=== PATIENT | female | born 1985 | race Two or more races ===

== ENCOUNTER 2017-04-06 11:00 | Emergency (ER) | payer MEDICAID ==
[~2017-04-06] VITALS: Ht 165.1 cm; Wt 70.8 kg
[~2017-04-06 11:00] MED LIST: PREN27TA7 OR; PRENCAP87 PO
[2017-04-06 11:45] VITALS: BP 125/78
== END 2017-04-06 12:18 | disposition home or self-care (01) ==
LOC: ER 11:01
DX: B37.3 Candidiasis of vulva and vagina (principal)